=== PATIENT | female | born 1985 | race Caucasian/White ===

== ENCOUNTER 2018-08-25 16:56 | Emergency (ER) | payer BC, SELFPAY ==
[2018-08-25] MEDS ORDERED: Ibuprofen 800 MG TAB ONE (18:02)
== END 2018-08-25 18:10 | disposition home or self-care (01) ==
LOC: MADERS 16:56
DX: H60.92 Unspecified otitis externa, left ear (principal)
CPT/HCPCS: 99282

== ENCOUNTER 2019-09-01 14:15 | Emergency (ER) | payer BC ==
--- NOTE | 2019-09-01 14:44 | RAD ---
EXAM: Chest 2 views: HISTORY: Chest pain COMPARISON: None. FINDINGS: There is a normal-sized cardiomediastinal silhouette. There is no evidence of consolidation, mass, or pleural effusion. The bones are unremarkable. IMPRESSION: No evidence of acute cardiopulmonary disease
[2019-09-01] MEDS ORDERED: Ketorolac Tromethamine 30 MG/ML VIAL ONE (14:45)
== END 2019-09-01 15:53 | disposition home or self-care (01) ==
LOC: MADERS 14:15
DX: R07.9 Chest pain, unspecified (principal); F41.9 Anxiety disorder, unspecified; F32.9 Major depressive disorder, single episode, unspecified; F17.210 Nicotine dependence, cigarettes, uncomplicated; Z79.899 Other long term (current) drug therapy
CPT/HCPCS: 36415; 71046; 85379; 93005; 96374; J1885

== ENCOUNTER 2022-08-13 12:31 | Emergency (ER) | payer BC, SELFPAY ==
[2022-08-13] MEDS ORDERED: Cephalexin 500 MG CAP ONE (13:17)
[2022-08-13] MEDS ORDERED: Sulfameth/Trimethoprim DS 800-160mg TAB ONE (13:17)
[2022-08-13 13:39] LABS: Pregnancy Test - Urine (BHCG) Negative (Negative); Pregu Control Background? CLEAR/WHITE (CLR/WHITE); Pregu Control Bar Appear? YES (CONTROL BAR)
== END 2022-08-13 13:47 | disposition home or self-care (01) ==
LOC: MADERS 12:31
DX: N61.0 Mastitis without abscess (principal); N63.0 Unspecified lump in unspecified breast; F17.210 Nicotine dependence, cigarettes, uncomplicated; F17.290 Nicotine dependence, other tobacco product, uncomplicated
CPT/HCPCS: 81025